=== PATIENT | male | born 1945 | race Hispanic/Latino ===

== ENCOUNTER 2016-07-08 11:18 | Day surgery (SDC) | payer MEDICARE ==
[2016-07-06 12:12] VITALS: BMI 32.4
[2016-07-08] MEDS ORDERED: Propofol 10 mg/ml Inj (20 ML) ONE ×2 (17:44→18:43)
[2016-07-08] MEDS ORDERED: Lactated Ringer's 1,000 ML IV ONE (18:18)
[2016-07-08] MEDS ORDERED: cefTRIAXone IV 1 gm in Dextros 50 ML IVPB ONE (18:24)
[2016-07-08] MEDS ORDERED: Oxycodone/Acetaminophen 5/325 mg Tab PO PRN (18:24)
[2016-07-08] MEDS ORDERED: HYDROmorphone 0.5 mg/0.5 ml ISec IVP PRN (18:29)
[2016-07-08] MEDS ORDERED: Lactated Ringer's 500 ML IV ONE (20:20)
[2016-07-08 20:41] VITALS: O2SAT 97
[2016-07-08 22:35] VITALS: BP 170/89; PULSE 65; RESP 15; TEMP 97
--- NOTE | 2016-07-18 21:00 | HP ---
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 Both reasons. Extremely pleasant gentleman who has the following urologic significant history. He has a history of prostate cancer for which he underwent a prostatectomy. This was not done by me. Since then, he apparently is YUSEF with a PSA that is undetectable. He subsequently had another urologist in [place]. Who did a penile prosthesis. At that time, this was done in an uncomplicated fashion. Apparently was working better than it is working now. What he is here for today are a few different things. One is voiding dysfunction, hematuria and here for cystoscopic evaluation, but the other iss ue and also specifically to see if there are any other things that we can do with the prosthesis. Wh at he reports is that there is pain in the scrotum where he cannot pump up the tubing and the valve w ithout causing pain and discomfort to the point that he did not want me to do it in the office, but yuki gonzáles wants to see if it is still working. See the plan listed below. So, he is here really for twofold; one is for voiding dysfunction, hematuria workup with prostate can cer underlying the picture with no evidence of recurrent disease and the other reason he is here is f or evaluation for exam under anesthesia to see if we can do anything with the prosthesis. PAST MEDICAL AND SURGICAL HISTORY: As mentioned above. No history of an CT or CVA. SOCIAL HISTORY: Essentially unremarkable. He has 6 children. He is actually here today with one of his daughters. 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 MEDICATIONS: See chart. PHYSICAL EXAMINATION: GENERAL: Well-nourished male, in no apparent distress. He appears much younger than stated age. ABDOMEN: Relatively soft, nontender. No flank mass appreciated. GENITOURINARY: The penis as follows: The exam is waited until he is under anesthesia, but I will me ntion now. He has a normal phallus. The prostheses are both in place. They are easily inflatable; I do want to mention, see the operativ e report, that they inflate and deflate. Meatus within normal limits. No testicular masses. Scrotum within relatively normal limits. RECTAL: Deferred until the time of cystoscopy. Just mention now, there is a soft empty prostatic fo ssa. I do not really feel much of anything. DIAGNOSES: 1. Prostate cancer, history of, and currently YUSEF. PSA is pending. 2. ED, erectile dysfunction, with penile prosthesis failure. PLAN: We discussed options with the patient. From a urology standpoint, for the hematuria, voiding dysfunction and with history of prostate cancer and treatment, he is going to undergo a cystoscopy to rule out any bladder neck contracture to make sure there is no erosion of the prosthesis. Perhaps, this is causing some of his discomfort and pain. In this regard, plan is as follows: We will plan for a cystoscopy. Regarding the prosthesis, I am g oing to just try with anesthesia to pump it up and see if it is able to be working properly and then discuss options. I did explain to the patient that I do not generally repair this in this situation, especially if it is working properly. There are experts that are willing to take the tubing apart a nd readjust the tubing and the fluid, etc. to see if there is any leak component. It is a complicated topic and I told him there is help to be done. He does not really want to underg o any operation that would require cutting or the like. So we are going to do it as gently and carefully as possible. Ramirez Feliciano MD cc: [id number] TT: 07/18/2016 20:59:16 cheikh
--- NOTE | 2016-07-18 21:36 | OP ---
PROCEDURE DATE: 07/08/2016 PREOPERATIVE DIAGNOSES: Voiding dysfunction, hematuria, history of prostate cancer and erectile dysf unction with a nonfunctioning prosthesis. POSTOPERATIVE DIAGNOSES: Voiding dysfunction, hematuria, history of prostate cancer and erectile dys function with a nonfunctioning prosthesis (but in fact the prosthesis is functioning well; what it re ally is is that the patient has some discomfort) see the plan listed below. PROCEDURE: Cystoscopy, and also exam under anesthesia, and readjustment; I tried to see if could put the prosthesis and pull it into the groin and twist and manipulate and adjust the position of the te sticle (this was really done to no avail). BLOOD LOSS: Less than 10 mL. COMPLICATIONS: There were no complications. FINDINGS: Normal anterior urethra, no strictures. The bladder neck is relatively . There are no bladder lesions or tumors identified, nothing to explain any voiding dysfunction. Regarding the prosthesis as a separate part of the procedure, we manually were able to pump it up wit hout any difficulty. There was no auto-inflation. It inflates and deflates with no difficulty at al l. In fact it looks good. I do want to mention that there is no evidence really of any kind or auto-inflation . The issue about trying to readjust its positioning without cutting or just to pull in a separate spot , I think is of a limited benefit. I tried gently to see if could pull really firmly with the patien t sleeping without disconnecting, dislodging or of the like, but it feels to be in general good posit ion relatively speaking in the scrotum, in a relatively crowded scrotum, but exam under anesthesia re vealed that it inflates and deflates. There is no evidence of auto-inflation and it works well. Ramirez Feliciano MD cc: [id number] TT: 07/18/2016 21:35:31 harriet
== END 2016-07-08 22:00 | disposition home or self-care (01) ==
LOC: C.SDS 11:18
PROVIDERS: ATTEND Urology
DX: R31.9 Hematuria, unspecified (principal); N52.9 Male erectile dysfunction, unspecified; Z85.46 Personal history of malignant neoplasm of prostate
CPT/HCPCS: 52000; 82948; 88305; J0360; J0696; J7120